=== PATIENT | male | born 1990 | race Caucasian/White ===

== ENCOUNTER 2023-02-25 11:08 | Emergency (ER) | payer OTHER ==
[~2023-02-25] VITALS: Ht 177.8 cm; Wt 104.3 kg
[2023-02-25] MEDS ORDERED: LIDOCAINE HCL 1% 20 ML VIAL ONE (14:46)
[2023-02-25] MEDS ORDERED: CEFAZOLIN SODIUM 1 GM VIAL IM SCH (15:30)
[2023-02-25] MEDS ORDERED: TETANUS/DIPHTHERIA TOXOID [ADULT] 0.5 ML VIAL IM ONE (15:30)
[2023-02-25] MEDS ORDERED: BACITRACIN 1 EACH PACKET TP ONE (15:30)
[2023-02-25 15:40] VITALS: BP 130/69; PULSE 75; RESP 18; O2SAT 98
== END 2023-02-25 15:41 | disposition home or self-care (01) ==
LOC: EDH 11:08
DX: S61.211A Laceration without foreign body of left index finger without damage to nail, initial encounter (principal); I10 Essential (primary) hypertension; Z98.890 Other specified postprocedural states; X58.XXXA Exposure to other specified factors, initial encounter; Y93.89 Activity, other specified; Y92.89 Other specified places as the place of occurrence of the external cause; Y99.8 Other external cause status
CPT/HCPCS: 99284; 90714; 73140; 90471; 12001; 96372; J0690